=== PATIENT | female | born 1975 ===

== ENCOUNTER 2024-06-29 11:17 | Emergency (ER) | payer SELFPAY ==
[2024-06-29 11:24] VITALS: BP 130/82; PULSE 100; RESP 19; TEMP 37.6; O2SAT 100; BMI 31.1
--- NOTE | 2024-06-29 11:24 | ED.GENADULT ---
HPI - General Adult General Chief complaint: General Medical Stated complaint: flu Related Data Allergies Allergy/AdvReac Type Severity Reaction Status Date / Time No Known Allergies Allergy Verified 06/29/24 11:25 [No Known Allergies*] [facility] Social History Social History Advance Directives: No Advance Directives Information Provided: No Do you have a plan to hurt others: No Plan Physical Exam ED Vital Signs: BMI result Body Mass Index 31.1 Course Course Course Narrative: This is an RME: Additional HPI, ROS, PE not included below will be deferred to primary provider. RME assessment and note performed by: Gladis Cox PA-C This is a [id number]-female, with a hx of paroxysmal a.fib not anticoagulated, and asthma, who presents to the ER with complaints of body aches, nasal congestion, nausea, vomiting since last night. Plan: Labs, EKG, Viral swabs. Reevaluation(s) Reevaluation #1: Patient left without completing treatment. Medical Decision Making Lab Data 06/29/24 12:19 06/29/24 12:19 Labs: Lab Results 06/29/24 Range/Units 12:19 WBC 7.2 (4.8-10.8) X10*3/uL RBC 4.49 (4.20-5.50) X10*6/uL Hgb 13.3 (12.0-16.0) g/dl Hct 39.1 (37.0-47.0) % MCV 87.1 (80.0-98.0) fL MCH 29.6 (27.0-33.0) pg MCHC 34.0 (31.0-35.0) g/dl RDW 12.7 (11.0-16.0) % Plt Count 324 (160-400) X10*3/uL MPV 10.0 (9.4-12.3) fL Immature Gran % (Auto) 0.3 (0.0-0.4) % Neut % (Auto) 88.7 H (45-73) % Lymph % (Auto) 4.3 L (20-40) % [place] % (Auto) 6.1 (2-11) % Eos % (Auto) 0.0 (0-4) % Baso % (Auto) 0.6 (0-2) % Lymph # (Auto) 0.3 L (1.2-4.9) X10*3/uL [place] # (Auto) 0.4 (0.1-1.2) X10*3/uL Eos # (Auto) 0.0 (0.0-0.4) X10*3/uL Baso # (Auto) 0.0 (0.0-0.2) X10*3/uL Abs Immat Gran (auto) 0.02 (0.00-0.03) X10*3/uL Absolute Neuts (auto) 6.4 (2.0-8.3) x10*3/uL Absolute Nucleated RBC 0.000 (0.0-0.012) X10*3/uL Nucleated RBC % (auto) 0.0 (0.0-0.2) /100WBC Sodium 140 (135-145) mmol/L Potassium 3.8 (3.3-5.1) mmol/L Chloride 109 H (96-108) mmol/L Carbon Dioxide 23 (22-29) mmol/L Anion Gap 12 (12-20) BUN 8 L (9-16) mg/dL Creatinine 0.60 (0.5-1.4) mg/dL Estim Creat Clear Calc 121.4 Estimated GFR > 60 Random Glucose 103 (60-115) mg/dL Calcium 9.1 (8.4-10.2) mg/dL Magnesium 1.8 (1.6-2.6) mg/dL Total Bilirubin 0.3 (0.0-1.0) mg/dL Direct Bilirubin 0.1 (0.0-0.5) mg/dL AST 30 (5-31) U/L ALT 43 H (0-31) U/L Alkaline Phosphatase 85 (39-117) U/L Troponin I High Sens < 2.7 (<3.5-17.0) ng/L Total Protein 8.0 (6.5-8.0) g/dL Albumin 4.2 (3.5-5.0) g/dL Lipase 13 (8-78) U/L Beta HCG, Quant < 2 mIU/mL Influenza Type A (PCR) POSITIVE A (Negative) Influenza Type B (PCR) NEGATIVE (Negative) RSV RNA Qual (PCR) NEGATIVE (Negative) SARS-CoV-2 RNA (RT-PCR) NEGATIVE (Negative) S. pyogenes GrpA ELAN Negative (Negative) Discharge Plan Discharge Clinical Impression: Flu Patient Disposition: Left W/O Completing Treatment Discharge Date/Time: 06/29/24 15:59
--- NOTE | 2024-06-29 11:25 | ECG_ITS ---
Test Reason : TACHYCARDIA Blood Pressure : */* mmHG Vent. Rate : 96 BPM Atrial Rate : 96 BPM P-R Int : 128 ms QRS Dur : 72 ms QT Int : 320 ms P-R-T Axes : 38 41 37 degrees QTcB Int : 404 ms Normal sinus rhythm Normal ECG No previous ECGs available Referred By: Gladis Cox Electronically Signed By: JACQUELYN MOJICA
[2024-06-29 12:24] LABS: MANUAL DIFF FLAG NO
[2024-06-29 12:25] LABS: Basophils Percent Auto 0.6 % (0-2); Hematocrit 39.1 % (37.0-47.0); Hemoglobin 13.3 g/dl (12.0-16.0); Imm Gran Abs Auto 0.02 X10*3/uL (0.00-0.03); Imm Gran Pct Auto 0.3 % (0.0-0.4); Lymphocytes Absolute Auto 0.3 X10*3/uL (1.2-4.9); Lymphocytes Percent Auto 4.3 % (20-40); Mean Corpuscular Hemoglobin 29.6 pg (27.0-33.0); Mean Corpuscular Volume 87.1 fL (80.0-98.0); Monocytes Absolute Auto 0.4 X10*3/uL (0.1-1.2); Monocytes Percent Auto 6.1 % (2-11); Neutrophils Absolute Auto 6.4 x10*3/uL (2.0-8.3); Neutrophils Percent Auto 88.7 % (45-73); Platelet Count 324 X10*3/uL (160-400); Red Blood Count 4.49 X10*6/uL (4.20-5.50); Red Cell Distribution Width 12.7 % (11.0-16.0); White Blood Count 7.2 X10*3/uL (4.8-10.8)
[2024-06-29 12:31] LABS: IDNOW Serial# 08D9AD1C; Strep A Nucleic Acid Negative (Negative)
[2024-06-29 12:47] LABS: Alanine Aminotransferase 43 U/L (0-31); Albumin Level 4.2 g/dL (3.5-5.0); Alkaline Phosphatase 85 U/L (39-117); Anion Gap 12 (12-20); Aspartate Amino Transferase 30 U/L (5-31); Bilirubin Direct 0.1 mg/dL (0.0-0.5); Bilirubin Total 0.3 mg/dL (0.0-1.0); Blood Urea Nitrogen 8 mg/dL (9-16); Calcium 9.1 mg/dL (8.4-10.2); Carbon Dioxide 23 mmol/L (22-29); Chloride 109 mmol/L (96-108); Creatinine Clr Calc Pharmacy 121.4; Estimated Glomerular Filt Rate > 60; Glucose Random 103 mg/dL (60-115); Lipase 13 U/L (8-78); Magnesium 1.8 mg/dL (1.6-2.6); Potassium 3.8 mmol/L (3.3-5.1); Sodium 140 mmol/L (135-145)
[2024-06-29 12:49] LABS: HCG Quantitative < 2 mIU/mL; Troponin-I High Sensitivity < 2.7 ng/L (<3.5-17.0)
[2024-06-29 13:04] LABS: Influenza A PCR POSITIVE (Negative); Influenza B PCR NEGATIVE (Negative); Resp Syncy Virus RNA Qual PCR NEGATIVE (Negative); SARS COV2 PCR INHOUSE NEGATIVE (Negative)
== END 2024-06-29 15:59 | disposition left against medical advice (07) ==
LOC: HO.ED 15:58
PROVIDERS: Physician Assistant Medical; Emergency Provider Emergency Medicine
DX: M79.10 Myalgia, unspecified site (principal); R11.2 Nausea with vomiting, unspecified; R09.81 Nasal congestion; R00.0 Tachycardia, unspecified; R10.2 Pelvic and perineal pain; Z79.899 Other long term (current) drug therapy; Z03.818 Encounter for observation for suspected exposure to other biological agents ruled out
CPT/HCPCS: 0241U; 36415; 80048; 80076; 83690; 83735; 84484; 84702; 85025; 87651; 93005; 99283

== ENCOUNTER → 2024-06-29 11:25 | Outpatient (BNV) | payer SELFPAY | PROVIDERS: Emergency Provider Emergency Medicine; Visit Provider Internal Medicine | DX: R00.0 Tachycardia, unspecified (principal) | CPT/HCPCS: 93010 ==